=== PATIENT | female | born 1970 | race Caucasian/White ===

== ENCOUNTER 2023-02-25 13:51 | Emergency (ER) | payer MEDICAID, SELFPAY ==
[2023-02-25 13:55] VITALS: BP 138/96; PULSE 87; RESP 18; TEMP 35.8; O2SAT 92
--- NOTE | 2023-02-25 14:28 | EX.ED.DYSGE1 ---
HPI History of Present Illness Chief Complaint: Wound Check Detail of Chief Complaint: Vaginal bleeding and rectal bleeding Informant: patient Narrative Narrative: Patient presents with vaginal bleeding and rectal bleeding that she wants to have evaluated. Patient states that she had a procedure 3 days ago and Ast[place] by an RISK ASSESSMENT CONSULTANT that removed a mass or lesion from inside her vagina and she has stitches there. Patient is been bleeding from the area. She went to [facility] yesterday evening and where she had blood work and CT scans. She started having rectal bleeding yesterday. She describes lower abdominal pain. She had no fevers or chills or sweats. Patient did not like the care she was getting at [place] so she presents here for evaluation. PFSH PFSH Allergy/AdvReac Type Severity Reaction Status Date / Time Penicillins Allergy Severe Anaphylaxis Verified 02/25/23 13:55 aspirin Allergy Intermediate Hives Verified 02/25/23 13:55 azithromycin Allergy Intermediate Swelling Verified 02/25/23 13:55 clindamycin Allergy Intermediate Swelling Verified 02/25/23 13:55 Fish Containing Products Allergy Intermediate nausea Verified 02/25/23 13:55 Iodinated Contrast Media Allergy Intermediate Swelling Verified 02/25/23 13:55 morphine Allergy Intermediate Anaphylaxis Verified 02/25/23 13:55 iodine Allergy Mild rash Verified 02/25/23 13:55 naproxen Allergy Mild Hives Verified 02/25/23 13:55 povidone-iodine Allergy Mild blisters Verified 02/25/23 13:55 [From Betadine] Social History Smoking Status: Current every day smoker tobacco type: cigarettes ROS ROS ED Review of Systems ROS Unobtainable: other Constitutional Constitutional ED: Reports lethargy; Denies chills, fever(s), sweats or weight loss Eyes Eyes: Denies blurry vision, change in vision or diplopia ENT ENT ED: Denies rhinorrhea or sore throat Cardiovascular Cardiovascular: Denies chest pain, orthopnea or racing heartbeat Respiratory/Chest Respiratory/Chest: Denies cough, dyspnea, dyspnea on exertion, orthopnea or sputum Gastrointestinal Gastrointestinal: Reports abdominal pain and other Details: Rectal bleeding ; Denies diarrhea, nausea or vomiting Genitourinary Genitourinary ED: Reports other Details: Vaginal bleeding ; Denies dysuria, hematuria or urinary frequency Musculoskeletal Musculoskeletal: Denies arthralgias, back pain, myalgias or neck pain Integumentary Denies abscess, Abrasions or rash Neurologic Neurologic: Denies headache(s) or weakness Psychiatric Psychiatric: Denies anxiety, depression or suicidal thoughts Endocrine Endocrinology: Denies polydipsia, polyphagia or polyuria Hematologic/Lymphatic Hematologic/Lymphatic: Denies easy bleeding, easy bruising or lymphadenopathy Allergic/Immunologic Allergic/Immunologic ED: Denies mouth swelling, tongue swelling or urticaria EXAM Physical Exam Const Vital Signs: 02/25/23 13:55 Temperature 96.5 F L Temperature Source Temporal Pulse Rate 87 Respiratory Rate 18 Blood Pressure 138/96 H Blood Pressure Mean 110 Pulse Ox 92 Oxygen Delivery Method Room Air Positive well nourished and well developed General Appearance ED: well developed and NAD HEENT Reports TM's clear and moist mucous membranes normocephalic and atraumatic; Negative for trauma or tenderness Tympanic Membrane ED: Yes TM's clear Eyes PERRL and EOMs intact bilaterally General Eye ED: Negative for pale conjunctiva or scleral icterus Neck no lymphadenopathy, supple and no JVD General: Negative for tenderness Chest Wall inspection of chest normal and palpation of chest normal Chest: Negative for tenderness Resp normal respiratory effort and clear to auscultation bilaterally Effort and Inspection: Negative for respiratory distress or pain with movement Auscultation: Negative for rhonchi, wheezes or diminished lung sounds Cardio regular rate, regular rhythm, S1 normal heart sound, S2 normal heart sound and no murmurs Peripheral Pulses: pulses 2+ throughout GI normal to inspection, nondistended, normoactive bowel sounds, soft to palpation, non-tender, non-distended and no masses Back/Spine no CVA tenderness and no thoracic nor lumbar tenderness Extremity normal to inspection General Extremety ED: Negative for edema General Extremity: Negative for edema Neuro oriented x3, CN's II-XII intact bilaterally, no sensory deficits noted and gait normal Sensorium / Orientation: awake, alert, oriented to person, oriented to place and oriented to time Motor Exam: strength 5/5 throughout and strength abnormal Psych mental status grossly normal Skin no rashes or lesions noted and no wounds MDM MDM MDM Narrative Medical decision making narrative: Patient presents with lower abdomen pain after having procedure to remove lesions from her vagina at [facility] on 1213. On 1214 she was seen in the emergency department at [facility]. Patient had significant workup including CT scan of the abdomen pelvis with IV contrast. I was able to obtain results from [facility] and review them. CBC with differential obtained here was unremarkable with a normal white count and hemoglobin of 14. Chemistries unremarkable. I did do a KUB which was unremarkable. On physical exam I do not appreciate any external bleeding. I did do a pelvic exam with speculum exam and there is no bleeding internally. Rectal exam showed brown stool that was Hemoccult positive. KUB obtained showed no evidence of obstruction. At this point patient will be discharged to home. I did discuss case with her RISK ASSESSMENT CONSULTANT and Emilee and Dr. 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 Clinically she looks well. She is advised to use MiraLAX as she has not had a bowel movements since before the surgery. There is no evidence of obstruction or fecal impaction. Patient comfortable with plan. Lab Data Attestation: I reviewed the patient's lab results. Labs: Laboratory Results - last 24 hr 02/25/23 14:57 WBC 8.6 RBC 4.62 Hgb 14.9 Hct 46.0 MCV 99.6 H MCH 32.3 H MCHC 32.4 RDW Std Deviation 44.1 H RDW Coeff of [place] 12.0 Plt Count 165 MPV 10.8 Immature Gran % (Auto) 0.500 Neut % (Auto) 68.7 Lymph % (Auto) 21.8 [place] % (Auto) 7.9 Eos % (Auto) 0.6 Baso % (Auto) 0.5 Absolute Neuts (auto) 5.9 Absolute Lymphs (auto) 1.88 Nucleated RBC % 0 Sodium 140 Potassium 4.6 Chloride 109 H Carbon Dioxide 30.0 Anion Gap 1 L BUN 16 Creatinine 0.74 Estim Creat Clear Calc 74.40 Est GFR (MDRD) Af Amer 106 Est GFR (MDRD) Non-Af 88 BUN/Creatinine Ratio 21.6 H Glucose 104 Calcium 9.1 Blood Type O POSITIVE Antibody Screen NEGATIVE Discharge Plan Triage Chief Complaint: Wound Check ED Provider: Alessandra Soares Dx/Rx/DC Orders Clinical Impression: Post-op bleeding, Abdominal pain, Constipation Instructions: ED Constipation (Adult), ED Post Op Wound Check, Pain Primary Care Provider: Deejay Silva Referrals: Deejay Silva MD [Primary Care Provider] - Activity Restrictions/Additional Instructions: Follow-up with your surgeon as instructed. Disposition Disposition: Home, Self Care Discharge Date/Time: 02/25/23 16:50
[2023-02-25 15:08] LABS: Absolute Lymphocyte Count 1.88 X10^3/uL (0.83-4.51); Absolute Neutrophil Count 5.9 X10^3/uL (2.0-7.7); Basophil# 0.04 X10^3/uL; Basophil% 0.5 % (0-1); Eosinophil# 0.05 X10^3/uL; Eosinophils% 0.6 % (0-5); Hemoglobin 14.9 g/dL (12.0-15.0); Lymphocyte # 1.88 X10^3/ul (0.83-4.51); Lymphocyte % 21.8 % (19-41); Mean Corp Hgb Conc 32.4 g/dL (32-36); Mean Corpuscular Hgb 32.3 pg (27.0-32.0); Mean Corpuscular Volume 99.6 fL (81-99); Mean Platelet Vol. 10.8 fl (6.2-12.0); Monocyte# 0.68 X10^3/uL; Monocyte% 7.9 % (0-10); NRBC Flagged by Analyzer 0 % (0-5); Neutrophil # 5.93 X10^3/uL (2.7-7.7); Neutrophil % 68.7 % (47-70); Platelet Count 165 K/mm3 (150-450); RBC Distribution Width SD 44.1 fl (35.1-43.9); Red Blood Count 4.62 M/mm3 (4.2-5.4); White Blood Count 8.6 K/mm3 (4.4-11.0)
[2023-02-25] MEDS: fentaNYL 100 MCG/2 ML Ampul 25 MCG IV (15:08)
[2023-02-25 15:10] VITALS: BMI 62.8
--- NOTE | 2023-02-25 15:11 | NURSING ---
FAXED RELEASE OF INFO TO [facility] [phone]
[2023-02-25 15:25] LABS: Anion Gap 1 (5-15); BUN 16 mg/dL (7-18); BUN/Creat Ratio 21.6 RATIO (10-20); Calcium,Total 9.1 mg/dL (8.5-10.1); Chloride 109 mmol/L (98-107); Creatinine, Serum 0.74 mg/dL (0.55-1.02); EST Glomerular Filtration Rate 88 mL/min (>60); Est Glom Filt Rate - Afr Amer 106 mL/min (>60); Glucose 104 mg/dL (74-106); Potassium 4.6 mmol/L (3.5-5.1); Sodium Level 140 mmol/L (136-145)
[2023-02-25] MEDS: 0.9% Normal Saline (1000mL) 1,000 ML 150 ML IV (15:29)
--- NOTE | 2023-02-25 15:45 | RAD_ITS ---
INDICATION: constipation EXAMINATION/TECHNIQUE: X-RAY - XR Abdomen 1 View COMPARISON: FINDINGS: BOWEL GAS PATTERN: Non-obstructive. No bowel or stomach distention. FREE AIR: Not assessed on a single supine view. ORGANOMEGALY: Not seen. CALCIFICATIONS: No abnormal calcifications observed. LOWER CHEST: No acute pathology. BONES AND SOFT TISSUES: No acute pathology. RAD/Abdomen Single View IMPRESSION: Non-obstructive bowel gas pattern. Electronically Signed: Loren Benito MD at 17:14 EST Reading Location ID and State: [id number] / Tel , Service support ,
== END 2023-02-25 16:50 | disposition home or self-care (01) ==
PROVIDERS: Emergency Provider Emergency Medicine; PCP Internal Medicine; Visit Provider Emergency Medicine
DX: N99.820 Postprocedural hemorrhage of a genitourinary system organ or structure following a genitourinary system procedure (principal); K59.00 Constipation, unspecified; F17.210 Nicotine dependence, cigarettes, uncomplicated; K62.5 Hemorrhage of anus and rectum; N93.9 Abnormal uterine and vaginal bleeding, unspecified
CPT/HCPCS: 74018; 80048; 82274; 85025; 86850; 86900; 86901; 96361; 96374; 99283; J7030; A4216

== ENCOUNTER 2024-08-21 10:44 | Emergency (ER) | payer MEDICAID, SELFPAY ==
[2024-08-21 10:45] VITALS: BP 126/85; PULSE 89; RESP 18; TEMP 36.9; O2SAT 94; BMI 49.2
--- NOTE | 2024-08-21 11:06 | ED.VIS.LOWEX ---
HPI History of Present Illness Chief Complaint: Lower Extremity Injury Detail of Chief Complaint: Left knee pain and left ear pain Informant: patient Narrative Narrative: Patient presents to the emergency department with complaint of left knee pain that she has had for about 3 weeks. She denies any injury. She was seen at an urgent care about a week ago and had x-rays that were unremarkable. She continues to complain of pain with walking and at times feels like her knees will give out. Patient states that she has had surgery on the left knee in the past for some cartilage damage. She has not seen her primary care physician for this or her orthopedic surgeon. Patient also complains of left ear pain for about 3 days. She denies fevers or chills or sweats. Patient denies recent travel or surgery. No history of PE or DVT. Patient has been taken Tylenol but not getting much relief. PFSH PFSH Home Medications ?Medication ?Instructions ?Recorded ?Last Taken ?Type hydrocodone-acetaminophen 5-325mg 1 tab PO Q4H PRN PRN Pain 2 days 08/21/24 Unknown Rx 5mg-325mg #10 TABLETS Allergy/AdvReac Type Severity Reaction Status Date / Time Penicillins Allergy Severe Anaphylaxis Verified 08/21/24 10:45 aspirin Allergy Intermediate Hives Verified 08/21/24 10:45 azithromycin Allergy Intermediate Swelling Verified 08/21/24 10:45 clindamycin Allergy Intermediate Swelling Verified 08/21/24 10:45 Fish Containing Products Allergy Intermediate nausea Verified 08/21/24 10:45 Iodinated Contrast Media Allergy Intermediate Swelling Verified 08/21/24 10:45 morphine Allergy Intermediate Anaphylaxis Verified 08/21/24 10:45 iodine Allergy Mild rash Verified 08/21/24 10:45 naproxen Allergy Mild Hives Verified 08/21/24 10:45 povidone-iodine (From Allergy Mild blisters Verified 08/21/24 10:45 Betadine) Social History Smoking Status: Current every day smoker tobacco type: cigarettes ROS ROS ED Review of Systems ROS Unobtainable: other Constitutional Constitutional ED: Reports lethargy; Denies chills, fever(s), sweats or weight loss Eyes Eyes: Denies blurry vision, change in vision or diplopia ENT ENT ED: Reports other Details: Left ear pain ; Denies rhinorrhea or sore throat Cardiovascular Cardiovascular: Denies chest pain, orthopnea or racing heartbeat Respiratory/Chest Respiratory/Chest: Denies cough, dyspnea, dyspnea on exertion, orthopnea or sputum Gastrointestinal Gastrointestinal: Denies abdominal pain, diarrhea, nausea or vomiting Genitourinary Genitourinary ED: Denies dysuria, hematuria or urinary frequency Musculoskeletal Musculoskeletal: Reports other Details: Left knee pain ; Denies arthralgias, back pain, myalgias or neck pain Integumentary Denies abscess, Abrasions or rash Neurologic Neurologic: Denies headache(s) or weakness Psychiatric Psychiatric: Denies anxiety, depression or suicidal thoughts Endocrine Endocrinology: Denies polydipsia, polyphagia or polyuria Hematologic/Lymphatic Hematologic/Lymphatic: Denies easy bleeding, easy bruising or lymphadenopathy Allergic/Immunologic Allergic/Immunologic ED: Denies mouth swelling, tongue swelling or urticaria EXAM Physical Exam Const Vital Signs: 08/21/24 10:45 Temperature 98.5 F Temperature Source Oral Pulse Rate 89 Respiratory Rate 18 Blood Pressure 126/85 H Blood Pressure Mean 98 Pulse Ox 94 Oxygen Delivery Method Room Air Positive well nourished and well developed General Appearance ED: well developed and NAD HEENT Reports TM's clear and moist mucous membranes HEENT Narrative: Left ear-no erythema. Normal visualization of the middle ear structures. No pain with traction on the pinna. Ear canal appears normal without edema. There is no drainage within the ear canal. No tenderness over the mastoid. normocephalic and atraumatic; Negative for trauma or tenderness Tympanic Membrane ED: Yes TM's clear Eyes PERRL and EOMs intact bilaterally General Eye ED: Negative for pale conjunctiva or scleral icterus Neck no lymphadenopathy, supple and no JVD General: Negative for tenderness Chest Wall inspection of chest normal and palpation of chest normal Chest: Negative for tenderness Resp normal respiratory effort and clear to auscultation bilaterally Effort and Inspection: Negative for respiratory distress or pain with movement Auscultation: Negative for rhonchi, wheezes or diminished lung sounds Cardio regular rate, regular rhythm, S1 normal heart sound, S2 normal heart sound and no murmurs Peripheral Pulses: pulses 2+ throughout GI normal to inspection, nondistended, normoactive bowel sounds, soft to palpation, non-tender, non-distended and no masses Back/Spine no CVA tenderness and no thoracic nor lumbar tenderness Extremity Extremity Narrative: Left knee-no effusion noted. There is no erythema or warmth. She has tenderness to palpation over the patellar tendon at the insertion into the anterior proximal tibia. Palpation of this area seems to reproduce her pain. Negative anterior posterior drawer test. Negative Emerald's test. General Extremety ED: Negative for edema General Extremity: Negative for edema Neuro oriented x3, CN's II-XII intact bilaterally, no sensory deficits noted and gait normal Sensorium / Orientation: awake, alert, oriented to person, oriented to place and oriented to time Motor Exam: strength 5/5 throughout and strength abnormal Psych mental status grossly normal Skin no rashes or lesions noted and no wounds MDM MDM MDM Narrative Medical decision making narrative: Patient presents with left ear pain left knee pain. Evaluation of the ear reveals no signs of infection and suspect this may be from eustachian tube dysfunction. Evaluation of the left knee reveals no evidence of trauma or evidence for infection. She has tenderness over the patellar tendon which may indicate tendinitis. She has had recent imaging within the last week and I do not feel she needs any further imaging as she has not had any trauma. Recommended outpatient follow-up with her orthopedic surgeon as if her symptoms do not improve may require more advanced imaging such as possibly MRI. Patient will be given a knee immobilizer and a few [place] for pain. Discharge Plan Triage Chief Complaint: Lower Extremity Injury Other Complaint: Ear Problem ED Provider: Alessandra Soares Dx/Rx/DC Orders Clinical Impression: Patellar tendinitis, Acute pain of left knee, Acute pain of left ear Instructions: ED Earache Without Infection (Adult), ED Tendonitis Prescriptions: New hydrocodone-acetaminophen 5-325 mg tablet 1 tab PO Q4H PRN PRN (Reason: Pain) 2 Days Qty: 10 0RF Primary Care Provider: Deejay Silva Referrals: Deejay Silva MD [Primary Care Provider] - Activity Restrictions/Additional Instructions: Follow-up with your orthopedic surgeon within the next 5 to 7 days Print Language: Greenlandic Disposition Disposition: Home, Self Care
[2024-08-21 11:24] VITALS: BP 113/66; PULSE 89; RESP 20; O2SAT 93
== END 2024-08-21 11:29 | disposition home or self-care (01) ==
LOC: ED 11:19
PROVIDERS: Emergency Provider Emergency Medicine; PCP Internal Medicine; Visit Provider Emergency Medicine
DX: M25.562 Pain in left knee (principal); F17.210 Nicotine dependence, cigarettes, uncomplicated; H92.02 Otalgia, left ear; M76.50 Patellar tendinitis, unspecified knee
CPT/HCPCS: 99284